=== PATIENT | female | born 1960 | race Caucasian/White ===

== ENCOUNTER 2016-11-27 12:58 | Outpatient (CLI) | payer BC | END 2016-11-27 13:17 | LOC: D.MAMMO 12:58 | DX: Z12.31 Encounter for screening mammogram for malignant neoplasm of breast (principal) ==

== ENCOUNTER 2018-04-01 19:00 | Outpatient (CLI) | payer BC | END 2018-04-01 23:59 | disposition home or self-care (01) | LOC: D.MAMMO 19:00 | DX: Z12.31 Encounter for screening mammogram for malignant neoplasm of breast (principal) ==

== ENCOUNTER 2020-10-02 13:35 | Outpatient (CLI) | payer BC | END 2020-10-02 23:59 | disposition home or self-care (01) | LOC: D.MAMMO 13:35 | PROVIDERS: ATTEND Family Medicine | DX: Z12.31 Encounter for screening mammogram for malignant neoplasm of breast (principal) ==